=== PATIENT | female | born 1990 | race Caucasian/White ===

== ENCOUNTER 2021-01-29 13:23 | Outpatient (CLI) | payer OTHER ==
[~2021-01-29 13:23] MED LIST: COLACE 100MG C100 MG PO
[2021-01-29 14:27] LABS: HEMOGLOBIN 11.6 gm/dl (12.3-15.3); RED BLOOD COUNT 4.11 M/UL (4.00-5.10); WHITE BLOOD COUNT 11.4 K/UL (4.5-11.0)
[2021-01-30] MEDS ORDERED: FEROSUL325 MG PO (06:14)
[2021-01-30] MEDS ORDERED: DOCUSATE SODIU100 MG PO (08:29)
[2021-01-30] MEDS ORDERED: IBUPROFEN800 MG PO (08:29)
[2021-01-30] MEDS ORDERED: HYDROCODONE-AC1 EAC1 PO (08:29)
== END 2021-01-29 14:50 | disposition home or self-care (01) ==
LOC: GENOP 13:23
PROVIDERS: Obstetrics & Gynecology
DX: Z01.812 Encounter for preprocedural laboratory examination (principal); O34.219 Maternal care for unspecified type scar from previous cesarean delivery; N85.8 Other specified noninflammatory disorders of uterus
CPT/HCPCS: 81001; 85025

== ENCOUNTER 2021-01-30 05:15 | Inpatient (IN) | payer OTHER ==
[~2021-01-30] VITALS: Ht 160 cm; Wt 68.0 kg
[2021-01-30] MEDS ORDERED: FEROSUL325 MG PO (06:14)
[2021-01-30] MEDS ORDERED: HYDROCODONE-AC1 EAC1 PO (08:29)
[2021-01-30] MEDS ORDERED: IBUPROFEN800 MG PO (08:29)
[2021-01-30] MEDS ORDERED: DOCUSATE SODIU100 MG PO (08:29)
[2021-01-31 06:56] LABS: HEMOGLOBIN 10.9 gm/dl (12.3-15.3)
== END 2021-02-01 12:06 | disposition home or self-care (01) | DRG 788 ==
LOC: OB 05:15
PROVIDERS: ADMIT Obstetrics & Gynecology
PROC: 4A1HXCZ Monitoring of Products of Conception, Cardiac Rate, External Approach (ICD-10-PCS; 2021-01-30)
PROC: 10D00Z1 Extraction of Products of Conception, Low, Open Approach (ICD-10-PCS; principal; 2021-01-30 07:30)
DX: O34.211 Maternal care for low transverse scar from previous cesarean delivery (principal); Z3A.39 39 weeks gestation of pregnancy; Z37.0 Single live birth; O99.02 Anemia complicating childbirth; O99.52 Diseases of the respiratory system complicating childbirth; Z20.822 Contact with and (suspected) exposure to COVID-19
CPT/HCPCS: 36415; 81001; 82800; 85014; 85018; 85025; C9113; J0690; J1885; J2274; J2405; J2590; J3010; J7120